=== PATIENT | female | born 1945 | race Caucasian/White ===

== ENCOUNTER 2016-05-03 10:30 | Inpatient (IN) | payer BC, OTHER ==
[2016-04-18 09:01] VITALS: BMI 28.0
--- NOTE | 2016-04-18 09:29 | PAT Medication Instructions ---
Service Date Apr 18, 2016. Current Home Medication List Acetaminophen (Tylenol 8 Hour Arthritis), 1,300 MG PO PN Aspirin (Aspirin Ec), 81 MG PO QPM Calcium (Caltrate), 600 MG PO BID Fish Oil ([place]-3), 1,000 MG PO BID Ibuprofen Tab (Advil), 400 MG PO PRN Lisinopril/Hctz (Prinzide 12.5-10MG *), 1 TAB PO QAM Multivitamin (Multivitamin), 1 TAB PO QAM Sennosides-Docusate Sodium (Stool Softener), 1 TAB PO QPM Simvastatin (Zocor), 20 MG PO QPM [Areds], 1 TAB PO 3XWEEK Medication Instructions For Your Scheduled Surgery - Hold the following medications as of 04/18/16: Fish Oil ([place]-3), 1,000 MG PO BID - Hold the following medications 10 days prior to surgery per surgeon's instructions: Ibuprofen Tab (Advil), 400 MG PO PRN - Hold the following medications the morning of surgery: Lisinopril/Hctz (Prinzide 12.5-10MG *), 1 TAB PO QAM Multivitamin (Multivitamin), 1 TAB PO QAM Calcium (Caltrate), 600 MG PO BID [Areds], 1 TAB PO 3XWEEK - Take the following medications the morning of surgery with a sip of water OTHERWISE NOTHING TO EAT OR DRINK AFTER MIDNIGHT: Acetaminophen (Tylenol 8 Hour Arthritis), 1,300 MG PO (may take up to 4 hours prior to surgery if needed) - Take the following medications as scheduled the night before surgery: Sennosides-Docusate Sodium (Stool Softener), 1 TAB PO QPM Simvastatin (Zocor), 20 MG PO QPM Aspirin (Aspirin Ec), 81 MG PO QPM Calcium (Caltrate), 600 MG PO BID Acetaminophen (Tylenol 8 Hour Arthritis), 1,300 MG PO If you have any questions please call us at [phone] or [phone] or [phone]
[2016-04-18 10:10] LABS: BASO % 0.5 %; BASO ABS # 0.03 K/uL (0-0.2); COMPLETE YES; EOS % 2.1 %; HEMATOCRIT 38.8 % (37-47); IG% 0.5 %; LYMPH % 25.3 %; LYMPH ABS # 1.42 K/uL (1.2-3.4); MEAN CELL VOLUME 91.1 fL (80-100); MEAN CORPUSCULAR HEMOGLOBIN 31.7 pg (25-34); MEAN CORPUSCULAR HGB CONC 34.8 g/dl (32-36); MEAN PLATELET VOLUME 9.4 fL (7.4-10.4); NEUT % 64.6 %; PLATELET COUNT 287 K/uL (130-400); RED BLOOD COUNT 4.26 M/uL (4.2-5.4); WHITE BLOOD COUNT 5.61 K/uL (4.8-10.8)
--- NOTE | 2016-04-18 10:13 | DIAGNOSTIC IMAGING REPORT ---
TWO VIEW CHEST CLINICAL HISTORY: Preoperative examination. FINDINGS: PA and lateral chest radiographs are compared to study dated 08/12/2009. The PA view is degraded by apical lordotic positioning. The cardiomediastinal silhouette is unremarkable. There is atherosclerotic calcification of the thoracic aorta. There is elevation of the right hemidiaphragm. The lungs and pleural spaces are clear. There is no pneumothorax. The skeletal structures are osteopenic. Degenerative change and scoliosis is noted in the thoracic spine. IMPRESSION: No active disease in the chest. Electronically signed by: Jayson Kaur M.D. 04/18/2016 10:12 AM Dictated Date/Time: 04/18/2016 10:11 AM
[2016-04-18 10:23] LABS: PARTIAL THROMBOPLASTIN RATIO 0.9; PROTHROMBIN TIME (PATIENT) 10.2 SECONDS (9.0-12.0)
[2016-04-18 10:34] LABS: BUN/CREATININE RATIO 30.9 (10-20); CALCIUM 9.6 mg/dl (8.5-10.1); CREATININE 0.81 mg/dl (0.60-1.20); POTASSIUM 4.6 mmol/L (3.5-5.1)
--- NOTE | 2016-04-30 11:44 | HISTORY & PHYSICAL EXAMINATION ---
DATE OF ADMISSION: 05/03/2016 CHIEF COMPLAINT: Left knee pain. HISTORY OF PRESENT ILLNESS: This is a 70-year-old female, who presents for surgical treatment of her left knee. She has a 2+ year history of persistent progressive increased left knee pain and discomfort. She has been through extensive conservative treatment including multiple oral medicines. She has been through therapy, which initially provided some relief but has not been successful lately. She had more and more trouble getting around. The pain is mostly on the medial side of her knee. It is increased with weightbearing. She would like to have her knee replaced. PAST MEDICAL HISTORY: 1. Hypertension. 2. Elevated cholesterol. 3. Mild obesity. 4. Melanoma status post resection. PAST SURGICAL HISTORY: 1. Benign lump removed from her breast. 2. Melanoma removal. ALLERGIES: None. CURRENT MEDICINES: 1. Lisinopril/hydrochlorothiazide. 2. Simvastatin. 3. Aspirin 81 mg. 4. Fish oil. 5. Multivitamin. 6. Calcium. SOCIAL HISTORY: Significant for a 70-year-old female. She is . Her has been a long-term patient of mine. Does not smoke. FAMILY HISTORY: Significant for heart disease and diabetes. REVIEW OF SYSTEMS: Negative for diabetes, neurologic problems, vascular problems or bleeding disorders. Denies any chest pain, no shortness of breath. No history of DVT or PE. PHYSICAL EXAMINATION: GENERAL: Reveals a pleasant, middle-aged female, looks to be in excellent health. HEENT: Benign. NECK: Supple. No lymphadenopathy. LUNGS: Clear to auscultation. HEART: Regular rate and rhythm. ABDOMEN: Soft, nontender, nondistended. EXTREMITIES: Grossly neurovascularly intact except as follows. Examination of the left knee reveals the patient walks with a slight bit of a limp. She has varus alignment to her knee. She has got bony hypertrophy medially. Range of motion is 5 to about 125. No instability. No pain with hip motion. X-RAYS: X-rays of the left knee were reviewed. It shows advanced left knee DJD. She has complete loss of medial joint space. She has subchondral sclerosis and osteophytes off the medial femoral condyle and medial tibial plateau. She has some mild patellofemoral disease as well. ASSESSMENT: A 70-year-old female with advanced left knee degenerative joint disease, unresponsive to conservative care. She would like to have her left knee replaced. PLAN: We will take her to the operating room and do a left total knee replacement. The risks and benefits of this procedure was explained to the patient including, but not limited to DVT, PE, , infection, neurological injury, vascular injury, bleeding problem, pain, limited range of motion, stiffness, failure to relieve her symptoms, incomplete relief of symptoms, need for further surgery in the future, fracture, leg length inequality, nerve palsy, need for blood transfusion, etc. The patient understands and desires to proceed. Informed consent was obtained. As far as discharge plan, she is planning to be discharged to home with the [facility]. Her can assist in her care as well. The patient had preoperative workup, which was all negative. We did talk about lisinopril the morning of surgery. I will see her back 2 weeks postop.
[2016-05-03] VITALS (7 sets, daily range): BP systolic 114–163; BP diastolic 68–98; PULSE 60–82; TEMP 36.3–36.6; O2SAT 99–100; Ht 160 cm; Wt 73.1 kg
[~2016-05-03] VITALS: Ht 160 cm; Wt 73.1 kg
[~2016-05-03 10:30] MED LIST: ACET650T97 PO; ACETAMINOPHEN 500 MG TAB PO SCH; AREDS PO; ASPI81TA28 PO; BUPIVACAINE 0.25% 30 ML VIAL ONE; BUPIVACAINE 0.5 % 5 MG/1 ML PF 10ML VIAL ONE; BUPIVACAINE LIPOSOME 266 MG, BUPIVACAINE/EPINEPHRINE INJ 50 ML, SODIUM CHLORIDE 0.9% PF... INFIL SCH; CALCTAB5 PO; CEFAZOLIN 2000 MG/60 ML D5W 60 ML IV SCH; FAMOTIDINE 20 MG TAB PO SCH; GABAPENTIN 300 MG CAP PO SCH; IBUP-103 PO; LACTATED RINGER'S 1000ML 500 ML IV ONE; LACTATED RINGER'S 1000ML IV SCH; METOCLOPRAMIDE HCL 10 MG TAB PO SCH; MULT-506 PO; OMEG10007 PO; SCOPOLAMINE 1.5 MG TDSY TD SCH; SENNTAB23 PO; SIMV20TA2 PO; TRANEXAMIC ACID INJ 1,000 MG in SODIUM CHLORIDE 0.9% 100ML 100 ML IV SCH; [UNRECOGNIZED DRUG - CODE] PO
[2016-05-03] MEDS: LACTATED RINGER'S 1000ML 1,000 ML IV SCH ×2 (11:22→12:20)
[2016-05-03] MEDS ORDERED: FENTANYL CITRATE INJ 50 MCG/1 ML 2 ML VIAL ONE (11:54)
[2016-05-03] MEDS ORDERED: MIDAZOLAM HCL 1 MG/ML 2ML VIAL ONE (11:55)
[2016-05-03] MEDS ORDERED: ONDANSETRON INJ 2 MG/ML 2 ML VIAL IV PRN ×2 (12:45→15:15)
[2016-05-03] MEDS ORDERED: ATROPINE SULFATE 0.1 MG/ML 5ML SYR IV PRN (12:45)
[2016-05-03] MEDS ORDERED: LABETALOL HCL IV 5 MG/ML 20ML IV PRN (12:45)
[2016-05-03] MEDS ORDERED: NALOXONE HCL 0.4 MG/1 ML VIAL/CARP IV PRN (12:45)
[2016-05-03] MEDS ORDERED: PROMETHAZINE HCL INJ 12.5 MG in SODIUM CHLORIDE 0.9% 50ML 50 ML IV PRN (12:45)
[2016-05-03] MEDS ORDERED: EpHEDrine SULFATE INJ 50 MG/ML AMP IV PRN (12:45)
[2016-05-03] MEDS ORDERED: FLUMAZENIL 0.1 MG/1 ML 10 ML VIAL IV PRN (12:45)
--- NOTE | 2016-05-03 13:05 | History & Physical Bridge Note ---
H&P Re-Evaluation Bridge Note: I have examined the patient, reviewed the History & Physical and in the interval since the performance of the History & Physical I have noted the following changes of clinical significance: No changes noted
[2016-05-03] MEDS ORDERED: BUPIVACAINE/EPINEPHRINE 0.25% 1:200,000 30 ML VIAL ONE (13:12)
[2016-05-03] MEDS ORDERED: SODIUM CHLORIDE 0.9% PF 50 ML VIAL ONE (13:12)
[2016-05-03] MEDS ORDERED: BACITRACIN 50000 UNIT VIAL ONE (13:13)
[2016-05-03] MEDS ORDERED: BUPIVACAINE LIPOSOME 1/3% 266 MG/20 ML VIAL INFIL ONE (13:13)
[2016-05-03] MEDS ORDERED: PROPOFOL IV EMULSION 10 MG/ML 20 ML VIAL IV ONE (13:56)
[2016-05-03] MEDS ORDERED: PHENYLEPHRINE HCL INJ 10 MG/ML VIAL ONE (14:46)
--- NOTE | 2016-05-03 15:11 | [facility] Post Operative Brief Note ---
Immediate Operative Summary Operative Date May 03, 2016. Pre-Operative Diagnosis Left Knee Advanced Degenerative Joint Disease Post-Operative Diagnosis Left Knee Advanced Degenerative Joint Disease Procedure(s) Performed Left Total Knee Arthroplasty Surgeon Dr. Jaime Plate Cutter Surgeon(s) SANDHYA Cadena Estimated Blood Loss 50 cc Findings Left Knee DJD Fluids (cc crystalloids) 1500 cc Specimens A. Left Knee Bone and Tissue Drains None Anesthesia Spinal Complication(s) None Disposition Recovery Room / PACU
[2016-05-03] MEDS ORDERED: METOCLOPRAMIDE HCL INJ 5 MG/ML 2 ML VIAL IV PRN (15:15)
[2016-05-03] MEDS ORDERED: ALUMINUM/MAGNESIUM/SIMETH (MAALOX MAX) 30 ML UDC PO PRN (15:15)
[2016-05-03] MEDS ORDERED: SILVER SULFADIAZINE 1% CR 50 GM JAR EXT PRN (15:15)
[2016-05-03] MEDS ORDERED: MAGNESIUM HYDROXIDE SUSP 30 ML UDC PO PRN (15:15)
[2016-05-03] MEDS ORDERED: ZOLPIDEM TARTRATE 5 MG TAB PO PRN (15:15)
[2016-05-03] MEDS ORDERED: AREDS PO SCH (15:15)
[2016-05-03] MEDS ORDERED: TAMSULOSIN HCL 0.4 MG CAP PO PRN (15:15)
[2016-05-03] MEDS ORDERED: BISACODYL 10 MG SUPP PR PRN (15:15)
[2016-05-03] MEDS ORDERED: MoRPHine SULFATE 2 MG/ML CARP IV PRN (15:15)
[2016-05-03] MEDS ORDERED: DiphenhydrAMINE HCL 50 MG/ML VIAL IV PRN (15:15)
--- NOTE | 2016-05-03 16:04 | OPERATIVE REPORT ---
DATE OF OPERATION: 05/03/2016 PREOPERATIVE DIAGNOSIS: Left knee degenerative joint disease. POSTOPERATIVE DIAGNOSIS: Same. PROCEDURE PERFORMED: Left cemented posterior stabilized total knee arthroplasty. SURGEON: Steve Jaime M.D. HARDENING MACHINE OPERATOR HELPER: Javier Hightower PA-C. COMPLICATIONS: None. ESTIMATED BLOOD LOSS: 50 mL. FLUID REPLACEMENT: 1500 mL crystalloid fluid replacement. TOURNIQUET TIME: 52 minutes at 300 mmHg. ANESTHESIA: Spinal with adductor canal block. DRAINS: None. SPECIMENS: Left knee sent for pathology. OPERATIVE INDICATIONS: The patient is a 70-year-old female who has had a several year history of increasing left knee pain and discomfort, unresponsive to conservative treatment. X-ray showed advanced left knee DJD. She elected to proceed with operative treatment. OPERATIVE FINDINGS: Operative findings revealed advanced left knee DJD. She had grade 4 [id number] disease extensively in the medial femoral condyle and medial tibial plateau. She had significant osteophytes off the medial side of the joint as well as the posteromedial femur. Moderate size joint effusion. Of note, she had a fairly large AP dimension of her femur relative to the medial lateral dimensions. OPERATIVE IMPLANTS: Operative implants consisted of: 1. Biomet Vanguard size 65 left posterior stabilized femoral component. 2. Biomet size 63 tibial tray. 3. A 10 mm posterior stabilized polyethylene insert. 4. A 31 x 8 all poly patella. OPERATIVE PROCEDURE: The patient taken to the operating room, identified and placed on the operating table in supine position. All contact areas were appropriately padded. IV antibiotics were provided by anesthesia team. A spinal anesthetic and adductor canal block had been provided in the holding area. Yip catheter was placed in sterile fashion. Left thigh tourniquet was then placed and left lower extremity was then prepped and draped in usual sterile fashion. Left leg was elevated and exsanguinated using Esmarch and tourniquet was placed at 300 mmHg. An anterior approach of the left knee was then performed through a longitudinal incision centered over the patella. Sharp dissection was carried out through the subcutaneous tissues down to the level of the extensor mechanism. A medial parapatellar arthrotomy incision was made. Some subperiosteal dissection was carried out medially. The fat pad was resected from beneath the patellar tendon. Lateral patellofemoral ligament was released. Patella was everted and knee was flexed. The osteophytes were taken off the distal femur. The ACL and PCL were then released from the distal femur and the tibia subluxated anteriorly. The external tibial alignment jig was then placed in the anterior face of the tibia and adjusted 14 mm medially. Proximal tibial cut was made to remove about 2 mm of bone from the most deficient aspect of the medial tibial plateau. Some osteophytes were taken off medial and posteromedially. Tibia was sized to a size 63. Attention was then drawn to the femur. The distal femur was entered with a sharp drill bit. Intramedullary canal was suctioned. A left 5 degree valgus cutting guide was placed. Distal femoral cutting block was pinned in place. Distal femoral cut was made to take an additional 3 mm of bone off the distal femur. The femur was then sized to a size 65. We did downsize this essentially an entire size due to the narrow medial lateral dimensions and knee was a little bit wide. The AP cutting block was pinned parallel to the epicondylar axis, which was 9 degrees of external rotation. She had a weird shape to her femur with a fairly anterior cortical defect. The anterior cut, anterior chamfer, posterior cut, posterior chamfer cuts were made. Box cutting guide was placed and adjusted slightly lateral and the box cut was made. The knee was flexed. The remnants of the medial and lateral menisci were excised. The osteophytes were taken off the posterior aspect of the femur. Trial femoral component was placed. Tibial tray was pinned in maximum external rotation and drill and stem punch were used to create defect in proximal tibia for the tibial tray. The knee was then trialed and a 10 mm insert fit most appropriately. Attention was then drawn to the patella. The patella was cleaned of all soft tissues. Patella thickness measured 20 mm in thickness cut down to 12. It was sized to a size 31 patella. Lug holes were drilled for the 31 patella. Lateral osteophyte was removed. Patella button was placed. Knee was taken through range of motion and patella tracked nicely with no thumbs test. Attention was then drawn toward placement of permanent components. All trial components were removed. Bone plug was placed in the distal femur to limit blood loss. A double batch of Palacos G cement was mixed. A left size 65 posterior stabilized femoral component, size 63 tibial tray, a 10 mm posterior stabilized polyethylene insert, and a 31 x 8 all poly patella then cemented in place. Knee was brought out into full extension until cement hardened. A final cement check was then performed. Pericapsular tissues were injected with a total of 100 mL of a combination of 20 mL of Exparel, 30 mL of normal saline, 50 mL of 0.25% Marcaine with epinephrine. The patient did receive 1 gram of tranexamic acid. The tourniquet was then let down for final tourniquet time of 52 minutes. Hemostasis was assured with use of electrocautery. The extensor mechanism was then closed with a combination of #1 PDS suture and #1 Vicryl suture in a [id number]-[id number] fashion. The extensor mechanism was checked and found to be intact. Subcutaneous tissues were then closed with 2-0 Dexon suture in a buried interrupted fashion. Skin was closed skin jessika. Leg was then cleaned and dried and a sterile dressing of Xeroform, 4 x 4, sterile cast padding and Rico bandage were applied. The patient was then transferred to the recovery room in stable condition. The patient tolerated the procedure with no complications. All needle and sponge counts were correct at the end of the operation. I attest to the content of the Intraoperative Record and any orders documented therein. Any exceptio ns are noted below.
--- NOTE | 2016-05-03 16:15 | DIAGNOSTIC IMAGING REPORT ---
LEFT KNEE 1 OR 2 VIEWS ROUTINE CLINICAL HISTORY: AP/LATERAL IN PACU LEFT KNEE knee replacement COMPARISON: None. DISCUSSION: Evidence for a total left knee replacement. Good contact between prosthetic and underlying bone. Soft tissue postoperative change. IMPRESSION: Anatomic alignment status post total left knee replacement Electronically signed by: Carlyle Mars M.D. 05/03/2016 4:14 PM Dictated Date/Time: 05/03/2016 4:13 PM
--- NOTE | 2016-05-03 16:44 | Anesthesiology Progress Note ---
Anesthesia Post Op Note Date & Time May 03, 2016 at 16:45 Vital Signs Pain Intensity: 0 Vital Signs Past 12 Hours Date Time Temp Pulse Resp B/P Pulse Ox O2 Delivery O2 Flow Rate FiO2 05/03/16 16:25 65 12 117/66 95 Nasal Cannula 2 05/03/16 16:15 86 19 130/77 96 Nasal Cannula 2 05/03/16 16:05 105 23 115/83 98 Nasal Cannula 2 05/03/16 15:55 63 12 115/64 95 Nasal Cannula 2 05/03/16 15:45 65 14 113/82 95 Nasal Cannula 2 05/03/16 15:35 59 10 101/64 97 Nasal Cannula 2 05/03/16 15:25 74 13 108/61 99 Mask 10 05/03/16 15:18 36.4 84 16 110/54 99 Mask 10 05/03/16 11:12 36.5 71 20 163/98 99 Room Air Notes Mental Status: alert / awake / arousable, participated in evaluation Pt Amnestic to Procedure: Yes Nausea / Vomiting: adequately controlled Pain: adequately controlled Airway Patency, RR, SpO2: stable & adequate BP & HR: stable & adequate Hydration State: stable & adequate Neuraxial Anesthesia: was administered, sensory block is resolving Anesthetic Complications: no major complications apparent
[2016-05-03] MEDS: CHECK SCOPOLAMINE PATCH PLACEMENT SCH (17:27)
[2016-05-03] MEDS: D5W AND 1/2NSS + 20MEQ KCL 1,000 ML IV SCH (18:18)
[2016-05-03] MEDS: KETOROLAC TROMETHAMINE 15 MG/ML VIAL IV. SCH (19:08)
[2016-05-03] MEDS: FERROUS GLUCONATE 324 MG TAB PO SCH (19:08)
[2016-05-03] MEDS ORDERED: TRANEXAMIC ACID INJ 1,000 MG in SODIUM CHLORIDE 0.9% 100ML 100 ML IV SCH (21:30)
[2016-05-03] MEDS: CEFAZOLIN IV 1,000 MG in DEXTROSE 5% 50ML 50 ML IV SCH (21:35)
[2016-05-03] MEDS: TAPENTADOL ER 50 MG TABCR PO SCH (21:35)
[2016-05-03] MEDS: OXYCODONE HCL IR 5 MG TAB (IMMEDIATE RELEASE) PO PRN (21:35)
[2016-05-03] MEDS: DOCUSATE SODIUM 100 MG CAP PO SCH (21:38)
[2016-05-03] MEDS: ACETAMINOPHEN 500 MG TAB PO SCH (21:39)
[2016-05-03] MEDS: CALCIUM CARBONATE 1250MG TAB PO SCH (21:39)
[2016-05-03] MEDS: SIMVASTATIN 20 MG TAB PO SCH (21:39)
[2016-05-03] MEDS: ASPIRIN 325 MG ECTAB PO SCH (21:39)
[2016-05-03] MEDS: DOCUSATE SODIUM/SENNA 50/8.6MG TAB PO SCH (22:09)
[2016-05-04] VITALS (8 sets, daily range): BP systolic 127–178; BP diastolic 78–92; PULSE 68–97; TEMP 36.4–37.3; O2SAT 70–97
[2016-05-04] MEDS: CHECK SCOPOLAMINE PATCH PLACEMENT SCH ×3 (00:09→16:28)
[2016-05-04] MEDS: KETOROLAC TROMETHAMINE 15 MG/ML VIAL IV. SCH ×4 (00:10→17:47)
[2016-05-04] MEDS: D5W AND 1/2NSS + 20MEQ KCL 1,000 ML IV SCH ×2 (04:00→12:51)
[2016-05-04] MEDS: CEFAZOLIN IV 1,000 MG in DEXTROSE 5% 50ML 50 ML IV SCH (05:32)
[2016-05-04] MEDS: ACETAMINOPHEN 500 MG TAB PO SCH ×3 (05:32→22:06)
[2016-05-04 06:52] LABS: HEMATOCRIT 30.9 % (37-47); MEAN CELL VOLUME 88.8 fL (80-100); MEAN CORPUSCULAR HEMOGLOBIN 30.7 pg (25-34); MEAN CORPUSCULAR HGB CONC 34.6 g/dl (32-36); MEAN PLATELET VOLUME 8.9 fL (7.4-10.4); PLATELET COUNT 242 K/uL (130-400); RED BLOOD COUNT 3.48 M/uL (4.2-5.4); WHITE BLOOD COUNT 9.82 K/uL (4.8-10.8)
[2016-05-04 07:26] LABS: BUN/CREATININE RATIO 17.7 (10-20); CALCIUM 8.7 mg/dl (8.5-10.1); CREATININE 0.91 mg/dl (0.60-1.20); POTASSIUM 4.1 mmol/L (3.5-5.1)
--- NOTE | 2016-05-04 07:47 | Anesthesiology Progress Note ---
Anesthesia Post Op Note Date & Time May 04, 2016 at 07:47 Vital Signs Vital Signs Past 12 Hours Date Time Temp Pulse Resp B/P Pulse Ox O2 Delivery O2 Flow Rate FiO2 05/04/16 03:26 37.3 73 16 127/79 95 Room Air 05/04/16 00:10 Room Air 05/03/16 23:47 36.6 70 16 135/83 99 Room Air Notes Mental Status: alert / awake / arousable, participated in evaluation Pt Amnestic to Procedure: Yes Nausea / Vomiting: adequately controlled Pain: adequately controlled Airway Patency, RR, SpO2: stable & adequate BP & HR: stable & adequate Hydration State: stable & adequate Neuraxial Anesthesia: sensory block resolved Anesthetic Complications: no major complications apparent
[2016-05-04] MEDS: TAPENTADOL ER 50 MG TABCR PO SCH ×2 (08:38→22:10)
[2016-05-04] MEDS: MULTIVITAMIN TAB PO SCH (08:38)
[2016-05-04] MEDS: ASPIRIN 325 MG ECTAB PO SCH ×2 (08:38→22:06)
[2016-05-04] MEDS: FERROUS GLUCONATE 324 MG TAB PO SCH ×3 (08:38→17:45)
[2016-05-04] MEDS: DOCUSATE SODIUM 100 MG CAP PO SCH ×2 (08:38→22:06)
[2016-05-04] MEDS: CALCIUM CARBONATE 1250MG TAB PO SCH ×2 (08:39→22:05)
[2016-05-04] MEDS: LISINOPRIL/HCTZ 10/12.5MG TAB PO SCH (08:39)
[2016-05-04] MEDS: PANTOprazole SOD 40 MG TAB PO SCH (08:39)
[2016-05-04] MEDS ORDERED: MULTIVITAMIN TAB PO SCH (09:00)
[2016-05-04] MEDS: OXYCODONE HCL IR 5 MG TAB (IMMEDIATE RELEASE) PO PRN ×2 (11:16→16:28)
[2016-05-04] MEDS ORDERED: FRRG PO (13:36)
[2016-05-04] MEDS ORDERED: PROM25TA9 PO (13:36)
[2016-05-04] MEDS ORDERED: ASPEC325 PO (13:36)
[2016-05-04] MEDS ORDERED: ACET-1138 PO (13:36)
[2016-05-04] MEDS ORDERED: RXC5 PO (13:36)
--- NOTE | 2016-05-04 13:38 | Discharge Instructions ---
Discharge Instructions Admission Reason for Admission: Left Knee Osteoarthritis Discharge Discharge Diagnosis / Problem: Left Knee Replacement Discharge Goals Goal(s): Decrease discomfort, Improve function, Increase independence, Improve disease control, Therapeutic intervention Activity Recommendations Activity Limitations: per Instructions/Follow-up section Weightbearing Status: Left weightbearing . Instructions / Follow-Up Instructions / Follow-Up ACTIVITY RECOMMENDATIONS: Physical Therapy: * You will go to physical therapy three times each week for four to six weeks after your surgery in order to regain your knee range of motion and to retrain your knee to work properly. * It is just as important to make sure you are getting your knee perfectly straight as it is to regain your knee bend. * Taking a pain pill an hour before therapy can help you have a more productive and comfortable therapy session. Home Exercise: * You were shown a series of exercises (heel props, heel slides, etc.) in the hospital. Do these exercises three to four times each day including the exercises you were shown in physical therapy. Walking: * Get up and walk several times each day. For the first four weeks, try not to stand or walk for more than one hour at a time. If you do stand or walk for more than one hour, you will not hurt anything, but your knee and leg will likely swell. * As you feel comfortable, you may change from the walker or crutches to a cane and then to independent walking. MEDICATIONS: New Medicine: * You will likely be taking one or more of these medications: 1. Oxycodone - A quick and shorter-acting pain medication. Take one to two tablets every four to six hours to lessen your pain. 2. Iron Sulfate - Take three times each day for the month after surgery to help you replace the blood lost during surgery. 3. Aspirin - Thins your blood to lessen the chance of forming a blood clot. * The most common side effects of pain medicine and iron are nausea and constipation. If nausea or constipation is too much of a problem or if you have any questions about your new medicines or doses, call [facility] at . We will try to help you manage these issues. VERY IMPORTANT TO READ AND REVIEW" Pain: * The immediate post-operative period after knee replacement surgery is often quite painful. * You are given a prescription for pain medicine. You should take it, as directed, when you need it, especially before physical therapy and before going to bed. Pain that interferes with sleep is very common and can last several months. * You will likely need pain medicine for the first four to six weeks. It will not stop all of the pain. The pain will lessen and as you feel better, you may change to milder pain medicine such as Tylenol. * The most common side effects of pain medicine are nausea and constipation, so don't take more than you need. SPECIAL CARE INSTRUCTIONS: TEDs/Elastic Stockings: * The white elastic stockings help limit swelling and prevent blood clots from forming in your legs. The more you wear them, the more they work. * Wear them for six weeks after knee replacement surgery and four weeks after partial knee replacement. Prevention of Infection: * Take antibiotics one hour before any dental cleaning, dental work, urological procedure, gastrointestinal procedure or any invasive surgery in order to prevent your new joint from getting infected. * You may get the antibiotics from the doctor performing the procedure or you may call our office at before and we will call in a prescription to the pharmacy of your choice. Things to Watch For: * Drainage from the incision site that occurs more than one week after your surgery. * Severely increased knee/leg pain or swelling. * Increased redness at the incision site. * Fever above 102 degrees Fahrenheit. * Unusual chest pain or shortness of breath. * Unusual pain or burning with urination. Call [facility] at with any of the above problems or if you have any questions about your medicines or recovery. FOLLOW UP VISIT: Make an appointment to see your doctor for approximately two weeks after surgery for a progress check and staple removal by calling the office at . Current Hospital Diet Patient's current hospital diet: Regular Diet Discharge Diet Recommended Diet: Regular Diet Procedures Procedures Performed: Left Total Knee Arthroplasty Pending Studies Studies pending at discharge: no Medical Emergencies . Who to Call and When: Medical Emergencies: If at any time you feel your situation is an emergency, please call [phone] immediately. . Non-Emergent Contact Non-Emergency issues call your: Surgeon . "Provider Documentation" section prepared by Steve Jaime. VTE Core Measure Inpt VTE Proph given/why not?: Other Anticoagulation, T.E.D. Stockings, SCD's
--- NOTE | 2016-05-04 13:57 | PROGRESS NOTE ---
DATE: 05/04/2016 DATE: 05/04/2016. SUBJECTIVE: A 70-year-old female postop day #1 from a left knee replacement. She is doing pretty well. Quite a bit of quad soreness and that is mostly it. No chest pain or shortness of breath. She is getting a little bit dizzy when she first gets up. No chest pain or shortness of breath. OBJECTIVE: VITAL SIGNS: Temperature is 36.6. PHYSICAL EXAMINATION: VITAL SIGNS: Stable. Some mild hypertension. LUNGS: Clear to auscultation. HEART: Regular rate and rhythm. ABDOMEN: Soft, nontender, nondistended. EXTREMITY EXAMINATION: Grossly neurovascularly intact except as follows: Examination of the left lower extremity reveals the dressing to be clean, dry and intact. Leg is well aligned. She can dorsiflex and plantarflex her foot appropriately. She is neurologically intact. LABORATORY DATA: Hemoglobin 10.7. Hematocrit 30.9. Electrolytes are stable. ASSESSMENT: A 70-year-old white female postop day 1 from left total knee replacement, doing pretty well. Some pain but within what is expected. She is getting a little bit dizzy when she gets up likely just the side effects of anesthesia and surgery. She is anemic but blood pressure is good. PLAN: 1. DVT prophylaxis including thigh-high TEDs, SCDs, and aspirin twice a day. 2. PT/OT. Weightbearing as tolerated. Left total knee protocol. 3. Pain control. Doing pretty well with current pain regimen. 4. Anemia. Fairly mild anemia. She is having some dizziness, but I do not think it is related to her anemia. Will continue to follow this and use iron supplementation. 5. Disposition: Plan to discharge to home with home health once adequately recovered.
[2016-05-04] MEDS: DOCUSATE SODIUM/SENNA 50/8.6MG TAB PO SCH (22:06)
[2016-05-04] MEDS: SIMVASTATIN 20 MG TAB PO SCH (22:06)
[2016-05-05] MEDS: KETOROLAC TROMETHAMINE 15 MG/ML VIAL IV. SCH ×3 (00:36→11:11)
[2016-05-05] MEDS: ACETAMINOPHEN 500 MG TAB PO SCH ×2 (05:50→13:44)
--- NOTE | 2016-05-05 07:37 | PROGRESS NOTE ---
DATE: 05/05/2016 SUBJECTIVE: 70-year-old female postop day 2 from left knee replacement. She is doing pretty well. Pain seems to be a little bit better today. No chest pain or shortness of breath. Not feeling dizzy or lightheaded. OBJECTIVE: VITAL SIGNS: Temperature 36.7. Vital signs stable. Some mild intermittent hypertension. PHYSICAL EXAMINATION: GENERAL: Reveals a pleasant, middle-aged female. She is sitting up in bed and looks comfortable. She is eating breakfast. LUNGS: Clear to auscultation. HEART: Regular rate and rhythm. ABDOMEN: Soft, nontender, nondistended. EXTREMITIES: Grossly neurovascularly intact except as follows: Examination of the left lower extremity reveals the dressing to be clean, dry and intact. Leg is well aligned. She can dorsiflex and plantarflex her foot appropriately. Calf is soft and supple. ASSESSMENT: 70-year-old female postop day 2 from left knee replacement, doing pretty well. Pain is reasonably well controlled. PLAN: 1. DVT prophylaxis including thigh-high TEDs, SCDs, and aspirin twice a day. 2. PT/OT. Weightbearing as tolerated. Left total knee protocol. 3. Pain control, doing pretty well with current pain regimen. 4. Disposition: Plan to discharge to home with home health.
[2016-05-05] MEDS: CHECK SCOPOLAMINE PATCH PLACEMENT SCH ×2 (07:47)
[2016-05-05] MEDS: FERROUS GLUCONATE 324 MG TAB PO SCH ×2 (07:48→12:30)
[2016-05-05] MEDS: DOCUSATE SODIUM 100 MG CAP PO SCH (08:46)
[2016-05-05] MEDS: LISINOPRIL/HCTZ 10/12.5MG TAB PO SCH (08:46)
[2016-05-05] MEDS: CALCIUM CARBONATE 1250MG TAB PO SCH (08:47)
[2016-05-05] MEDS: MULTIVITAMIN TAB PO SCH (08:47)
[2016-05-05] MEDS: PANTOprazole SOD 40 MG TAB PO SCH (08:47)
[2016-05-05] MEDS: ASPIRIN 325 MG ECTAB PO SCH (08:47)
[2016-05-05] MEDS: TAPENTADOL ER 50 MG TABCR PO SCH (08:51)
[2016-05-05 09:53] VITALS: BP 159/78; PULSE 89; TEMP 36.7; O2SAT 93
[2016-05-05 10:46] VITALS: BP 152/87; PULSE 82; TEMP 36.7; O2SAT 93
[2016-05-05] MEDS: OXYCODONE HCL IR 5 MG TAB (IMMEDIATE RELEASE) PO PRN ×2 (11:10→15:20)
--- NOTE | 2016-05-07 11:14 | EDITING REQUIRED CODING QUERY ---
CODING QUERY ANEMIA To promote full compliance with coding requirements relating to patient care, physician participation is requested in all cases of security director uncertainty. Please assist us with the question(s) below: Coding Question(s): The record reflects the following clinical documentation: Anemia postoperatively with HCT of 30.9 and HCT of 10.7. There are several coding choices for this diagnosis and more specificity is needed for code selection. [place] indicate the type of anemia this patient had: (x) Acute blood loss anemia ( ) Acute postoperative anemia due to dilutional fluids ( ) Chronic blood loss anemia ( ) Iron deficient anemia due to blood loss ( ) Iron deficiency anemia ( ) Anemia, unspecified or other ( ) Other: (please specify) ( ) Unable to determine Thank you for your time, Kristy Pacheco BA, , OCULAR CARE AIDE, INDUSTRIAL WASTE INSPECTOR
--- NOTE | 2016-05-11 11:11 | DISCHARGE SUMMARY ---
ADMITTING PHYSICIAN AND SURGEON: Dr. Jaime. ADMITTING DIAGNOSIS: Left knee degenerative joint disease. SURGERY PERFORMED: Left total knee arthroplasty. SECONDARY DIAGNOSES: Includes hypertension, elevated cholesterol, mild obesity, melanoma. HISTORY AND PHYSICAL EXAMINATION: Well documented in the patient's chart. HOSPITAL COURSE: The patient was admitted on 05/03/2016 underwent total knee arthroplasty. She tolerated the procedure well. There were no complications. Transferred to PACU postoperatively and later to the orthopedic floor for further care. She was given Ancef for antibiotic prophylaxis, LEANDRO stockings, SCDs and aspirin for DVT prophylaxis. Her hemoglobin, hematocrit and vital signs were monitored during her hospital stay and she remained stable. She developed some postoperative anemia with a hemoglobin of 10.7, did not require any blood transfusions. She did receive an iron supplement. There were no complications. By postoperative day 2, she was tolerating a general diet, pain was controlled with oral pain medicine. She was participating in physical therapy and had no signs or symptoms of deep vein thrombosis. On postop day 2, she was discharged home in good condition, set up with home health services. She was given printed discharge instructions including prescriptions for extra strength Tylenol, aspirin 325 mg b.i.d., iron supplement, oxycodone, Phenergan and continue her home medicines with the exception of her home doses of Tylenol and aspirin which were changed. Continue physical therapy, weightbearing as tolerated, LEANDRO stockings. Follow up in 10-12 days or sooner if there are problems or concerns.
== END 2016-05-05 15:30 | disposition home health service (06) | DRG 470 ==
LOC: ENRESERVTM → ENRESERVDT → C.ACU 10:30 → C.3E 11:20
PROVIDERS: ADMIT Orthopaedic Surgery Sports Medicine; ATTEND Orthopaedic Surgery Sports Medicine
PROC: 0SRD0J9 Replacement of Left Knee Joint with Synthetic Substitute, Cemented, Open Approach (ICD-10-PCS; principal; 2016-05-03 12:15)
DX: M17.12 Unilateral primary osteoarthritis, left knee (principal); D62 Acute posthemorrhagic anemia; M21.162 Varus deformity, not elsewhere classified, left knee; M25.462 Effusion, left knee; R42 Dizziness and giddiness; I10 Essential (primary) hypertension; E78.00 Pure hypercholesterolemia, unspecified; E66.9 Obesity, unspecified; Z68.28 Body mass index [BMI] 28.0-28.9, adult; Z79.82 Long term (current) use of aspirin; Z79.899 Other long term (current) drug therapy

== ENCOUNTER → 2016-08-15 | Outpatient (CLI) | payer BC, OTHER ==
[~2016-08-15] MED LIST changes: +ACET-1138 PO; -ACET650T97 PO; -ACETAMINOPHEN 500 MG TAB PO SCH; +ASPEC325 PO; -ASPI81TA28 PO; -BUPIVACAINE 0.25% 30 ML VIAL ONE; -BUPIVACAINE 0.5 % 5 MG/1 ML PF 10ML VIAL ONE; -BUPIVACAINE LIPOSOME 266 MG, BUPIVACAINE/EPINEPHRINE INJ 50 ML, SODIUM CHLORIDE 0.9% PF... INFIL SCH; -CEFAZOLIN 2000 MG/60 ML D5W 60 ML IV SCH; -FAMOTIDINE 20 MG TAB PO SCH; +FRRG PO; -GABAPENTIN 300 MG CAP PO SCH; -LACTATED RINGER'S 1000ML 500 ML IV ONE; -LACTATED RINGER'S 1000ML IV SCH; -METOCLOPRAMIDE HCL 10 MG TAB PO SCH; +RXC5 PO; -SCOPOLAMINE 1.5 MG TDSY TD SCH; -TRANEXAMIC ACID INJ 1,000 MG in SODIUM CHLORIDE 0.9% 100ML 100 ML IV SCH
[2016-08-15 12:23] LABS: BLOOD UREA NITROGEN 18 mg/dl (7-18); BUN/CREATININE RATIO 23.5 (10-20); CALCIUM 9.6 mg/dl (8.5-10.1); CARBON DIOXIDE 30 mmol/L (21-32); CHLORIDE 106 mmol/L (98-107); CREATININE 0.78 mg/dl (0.60-1.20); GLUCOSE 86 mg/dl (70-99); POTASSIUM 4.1 mmol/L (3.5-5.1); SODIUM 141 mmol/L (136-145)
[2016-08-15 12:30] LABS: CHOLESTEROL 167 mg/dl (0-200); CHOLESTEROL/HDL RATIO 2.7; HDL CHOLESTEROL 62 mg/dl; LDL CHOLESTEROL CALCULATED 68 mg/dl; TRIGLYCERIDES 186 mg/dl (0-150); VERY LOW DENSITY LIPOPROT CALC 37 mg/dl
== END | disposition home or self-care (01) ==
LOC: C.LABPVFM 08:28
PROVIDERS: ATTEND Family Medicine
DX: E78.5 Hyperlipidemia, unspecified (principal); I10 Essential (primary) hypertension

== ENCOUNTER → 2016-10-25 | Outpatient (CLI) | payer BC ==
--- NOTE | 2016-10-25 14:36 | MAMMOGRAPHY REPORT ---
BILATERAL DIGITAL SCREENING MAMMOGRAM WITH CAD: 10/25/2016 CLINICAL HISTORY: Routine screening. TECHNIQUE: Bilateral CC and MLO views were obtained. Current study was also evaluated with a Compute r Aided Detection (CAD) system. COMPARISON: Comparison is made to exams dated: 10/21/2015 mammogram, 10/14/2014 mammogram, 10/09/2013 ma mmogram, 10/03/2012 mammogram, 09/29/2011 mammogram, and 09/27/2010 mammogram - [facility] nter. BREAST COMPOSITION: There are scattered areas of fibroglandular density in both breasts. FINDINGS: Several circular mole markers overlie each breast. There are scattered benign-appearing ri m and round microcalcifications. No suspicious mass, architectural distortion or cluster of suspicio us microcalcifications is seen. IMPRESSION: ACR BI-RADS CATEGORY 1: NEGATIVE There is no mammographic evidence of malignancy. A 1 year screening mammogram is recommended. The pa tient will receive written notification of the results. Approximately 10% of breast cancers are not detected with mammography. A negative mammographic report should not delay biopsy if a clinically suggestive mass is present. Celina Regalado M.D. ay/:10/25/2016 11:29:28 Substance Abuse Nurse: Nathalia HAWKINS(R)(M), [facility] letter sent: Normal 1/2 BI-RADS Code: ACR BI-RADS Category 1: Negative
== END | disposition home or self-care (01) ==
LOC: C.MAMM 10:52
PROVIDERS: ATTEND Family Medicine
DX: Z12.31 Encounter for screening mammogram for malignant neoplasm of breast (principal)

== ENCOUNTER → 2017-01-20 | Outpatient (CLI) | payer BC ==
[2017-01-20 17:37] LABS: BLOOD UREA NITROGEN 20 mg/dl (7-18); BUN/CREATININE RATIO 24.1 (10-20); CALCIUM 9.7 mg/dl (8.5-10.1); CARBON DIOXIDE 28 mmol/L (21-32); CHLORIDE 105 mmol/L (98-107); CREATININE 0.84 mg/dl (0.60-1.20); GLUCOSE 92 mg/dl (70-99); SODIUM 139 mmol/L (136-145)
== END | disposition home or self-care (01) ==
LOC: C.LABPVFM 11:37
PROVIDERS: ATTEND Family Medicine
DX: I10 Essential (primary) hypertension (principal)

== ENCOUNTER → 2017-06-01 | Outpatient (CLI) | payer BC | END | disposition home or self-care (01) | LOC: C.PATHSPEC 18:39 | PROVIDERS: ATTEND Plastic Surgery | DX: D23.71 Other benign neoplasm of skin of right lower limb, including hip (principal); L90.5 Scar conditions and fibrosis of skin ==

== ENCOUNTER → 2017-10-23 | Outpatient (CLI) | payer BC ==
[2017-10-23 17:14] LABS: HEMATOCRIT 39.9 % (37-47); HEMOGLOBIN 13.1 g/dL (12.0-16.0); MEAN CELL VOLUME 93.4 fL (80-100); MEAN CORPUSCULAR HEMOGLOBIN 30.7 pg (25-34); MEAN CORPUSCULAR HGB CONC 32.8 g/dl (32-36); MEAN PLATELET VOLUME 9.6 fL (7.4-10.4); PLATELET COUNT 333 K/uL (130-400); RED CELL DISTRIBUTION WIDTH CV 14.1 % (11.5-14.5); RED CELL DISTRIBUTION WIDTH SD 47.9 fL (36.4-46.3); WHITE BLOOD COUNT 7.85 K/uL (4.8-10.8)
[2017-10-23 17:28] LABS: ALBUMIN 3.9 gm/dl (3.4-5.0); ALKALINE PHOSPHATASE 72 U/L (45-117); ALT/SGPT 30 U/L (12-78); AST/SGOT 19 U/L (15-37); BLOOD UREA NITROGEN 22 mg/dl (7-18); CALCIUM 9.7 mg/dl (8.5-10.1); CARBON DIOXIDE 28 mmol/L (21-32); CHOLESTEROL 175 mg/dl (0-200); GLUCOSE 95 mg/dl (70-99); LDL CHOLESTEROL CALCULATED 63 mg/dl; POTASSIUM 3.9 mmol/L (3.5-5.1); SODIUM 140 mmol/L (136-145); TOTAL PROTEIN 7.5 gm/dl (6.4-8.2)
== END | disposition home or self-care (01) ==
LOC: C.LABPVFM 14:10
PROVIDERS: ATTEND Family Medicine
DX: J06.9 Acute upper respiratory infection, unspecified (principal)

== ENCOUNTER 2019-12-05 10:36 | Observation (INO) ==
--- NOTE | 2019-11-05 16:38 | PAT Medication Instructions ---
Medication Instructions Date of Service November 05, 2019 Home Medications Medication Instructions Recorded docusate sodium [Colace] 100 mg PO BID #60 cap 06/10/18 lisinopril 10 1 tab PO QAM #90 tab 05/23/19 mg-hydrochlorothiazide 12.5 mg tablet simvastatin 20 mg tablet 20 mg PO HS #90 tab 05/23/19 alendronate 70 mg tablet See Rx Instructions .ROUTE 07/01/19 .COMPLEX #12 tablet diclofenac sodium 75 mg 75 mg PO BID PRN #60 tab 10/18/19 tablet,delayed release multivitamin 1 tab PO QAM docusate sodium [Colace] 100 mg PO BID calcium carbonate 600 mg calcium (1,500 mg) tablet 600 mg PO BID aspirin 81 mg tablet,delayed release 81 mg PO HS lisinopril 10 mg-hydrochlorothiazide 12.5 mg tablet 1 tab PO QAM simvastatin 20 mg tablet 20 mg PO HS alendronate 70 mg tablet See Rx Instructions diclofenac sodium 75 mg tablet,delayed release 75 mg PO BID PRN Continue as directed alendronate 70 mg tablet See Rx Instructions (just do not take AM of surgery) ASK your surgeon for instructions diclofenac sodium 75 mg tablet,delayed release 75 mg PO BID PRN DO NOT take the morning of surgery multivitamin 1 tab PO QAM docusate sodium [Colace] 100 mg PO BID calcium carbonate 600 mg calcium (1,500 mg) tablet 600 mg PO BID lisinopril 10 mg-hydrochlorothiazide 12.5 mg tablet 1 tab PO QAM Take evening before surgery simvastatin 20 mg tablet 20 mg PO HS aspirin 81 mg tablet,delayed release 81 mg PO HS docusate sodium [Colace] 100 mg PO BID calcium carbonate 600 mg calcium (1,500 mg) tablet 600 mg PO BID OTHERWISE NOTHING TO EAT OR DRINK AFTER MIDNIGHT Other Notes If you have any questions please call us at [phone] or [phone] or [phone] or [phone]
--- NOTE | 2019-11-06 09:29 | Anesthesiology Consultation ---
Date of Service November 06, 2019 Assessment & Plan (1) Encounter for pre-operative examination: COVID Status: As of 11/05 assessment, patient denies travel to endemic area, known exposure/sick contacts, or symptoms of COVID19. Patient instructed that they and their household members must follow strict social distancing guidelines, wear a mask in public and avoid travel for 14 days prior to surgery. Preoperative COVID19 testing to be completed prior to surgery per surgeon's arra ngarpita. Patient made aware to self-isolate as much as possible between COVID testing and surgery. S/P L TKA 2017 @ [facility] -- SAB + PNB without issues. Chart Review Chart Review: Acceptable Risk for Surgery and Patient seen in Pre Admission Testing Teaching & Discussion Instructed NPO after midnight before surgery, except medications with 15 cc of water. Medication instructions provided according to the PAT guidelines. History Surgery Operation Date: 12/05/19 07:30 Proposed Procedures p Right Total Knee Arthroplasty - Steve Jaime MD Height/Weight Height: 5 ft 2 in Weight: 74.1 kg Allergies Allergy/AdvReac Type Severity Reaction Status Date / Time No Known Drug Allergies Allergy Unknown NONE Verified 10/30/19 10:20 venom-wasp Allergy Verified 10/30/19 10:20 Medications Home Medications Medication Instructions Recorded Confirmed Last Taken multivitamin 1 tab PO QAM 03/12/18 10/30/19 06/10/18 docusate sodium [Colace] 100 mg PO BID #60 cap 06/10/18 10/30/19 Unknown calcium carbonate 600 mg calcium 600 mg PO BID 10/31/18 10/30/19 Unknown (1,500 mg) tablet aspirin 81 mg tablet,delayed 81 mg PO HS 12/17/18 10/30/19 Unknown release lisinopril 10 1 tab PO QAM #90 tab 05/23/19 10/30/19 Unknown mg-hydrochlorothiazide 12.5 mg tablet simvastatin 20 mg tablet 20 mg PO HS #90 tab 05/23/19 10/30/19 Unknown alendronate 70 mg tablet See Rx Instructions .ROUTE 07/01/19 10/30/19 Unknown .COMPLEX #12 tablet diclofenac sodium 75 mg 75 mg PO BID PRN #60 tab 10/18/19 10/30/19 Unknown tablet,delayed release Past Medical History Medical History (Updated 11/06/19 @ 16:19 by Arturo Porras) Cardiac murmur no requirements engineer; last echo 2008 [place] showed mild AI; no murmur heard on exam at PAT History of basal cell carcinoma 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 Unknown etiology. History of melanoma Hyperlipidemia Hypertension Macular degeneration "MILD" Osteoarthritis Postmenopausal bone loss Sciatica Exercise / Class Metabolic Activity II 4-5 Yardwork/Stairs/Walk up hill Past Family History Family History Grandfather (Paternal) Family history of diabetes mellitus Family/Other Family history of diabetes mellitus Father Myocardial infarction Other No family history of adverse response to anesthesia Denies family history of Ovarian cancer Prostate cancer Breast cancer Colorectal cancer Past Surgical History Surgical History History of basal cell carcinoma (BCC) excision History of cataract surgery History of colonoscopy History of left knee replacement History of melanoma excision History of tonsillectomy History of tooth extraction Past Anesthesia History No Hx of Anesthesia Complications and No Family Hx of Anesthesia Complications History of PONV No Hx of PONV and Hx of Motion Sickness Social History Smoking Status: Never smoker Do You Dip or Chew Tobacco: No Hx Alcohol Use: Yes Alcohol type: wine alcohol intake frequency: a few times a month Hx Substance Use: No substance use type: does not use Review of Systems Pt denies any recent chest pain, shortness of breath, palpitations, cough, fever, URI, or uncontrolled acid reflux. Physical Exam Vital Signs BP: 150/92 (pt following with PCP for HTN, on Lisonopril/HCTZ, reports usually still in 140s systolic and will discuss with PCP at next appt) P: 75bpm SPO2: 96% RA T: 98.2 F R: 16 ENMT Mouth: + dental restorations (few crowns, upper incisors and molars); no chipped teeth and no loose teeth Thyromental Distance: > or= 3.5 Finger Breadths Mallampati Class: II Neck normal visual inspection; neck extension not limited Respiratory normal respiratory effort Auscultation: lungs clear to auscultation bilaterally Cardiovascular Rate/Rhythm: regular rate and regular rhythm Heart Sounds: no murmur Extremities: no edema Testing Laboratory Results 11/06/19 09:46 11/06/19 09:46 PT 10.3 Seconds (9.0-12.0) 11/06/19 09:46 INR 1.0 (0.9-1.1) 11/06/19 09:46 APTT 24.8 Seconds (21.0-31.0) 11/06/19 09:46 Blood Type A Positive 11/06/19 09:46 Antibody Screen NEGATIVE 11/06/19 09:46 Electrocardiogram Date: 11/06/19 Findings: + NSR @ (67bpm) Nonspecific T wave abnormality in anteroseptal leads. Compared with EKG of 04/18/2016, nonspecific T wave abnormality now present. Otherwise no significant change. Chest X-Ray Date: 11/06/19 Findings: + NAD
--- NOTE | 2019-11-06 10:04 | XRay Report ---
XR chest Pre-admission PA/Lat CLINICAL HISTORY: Preoperative chest COMPARISON STUDY: 04/18/2016 FINDINGS: The cardiac and mediastinal contours are normal. There is no evidence of focal pulmonary co nsolidation. There is no evidence of failure. No pleural effusions are visualized.[There is right inf rahilar subsegmental atelectasis/scarring IMPRESSION: No active disease in the chest. ACT 112: Negative or not required by law. Electronically signed by: Jay Roberto M.D. 11/06/2019 10:03 AM
[2019-11-06 10:17] LABS: Basophils # (auto) 0.02 K/uL (0-0.2); Basophils % (auto) 0.3 %; Eosinophils # (auto) 0.11 K/uL (0-0.5); Eosinophils % (auto) 1.8 %; Hematocrit (blood only) 36.7 % (37-47); Hemoglobin 12.5 g/dL (12.0-16.0); Immature Granulocytes # (auto) 0.03 K/uL (0.00-0.02); Immature Granulocytes % (auto) 0.5 %; Lymphocytes # (auto) 1.43 K/uL (1.2-3.4); Lymphocytes % (auto) 23.7 %; Mean Corpuscular Hemoglobin 31.3 pg (25-34); Mean Corpuscular Hgb Conc 34.1 g/dL (32-36); Mean Platelet Volume 8.9 fL (7.4-10.4); Monocytes # (auto) 0.35 K/uL (0.11-0.59); Monocytes % (auto) 5.8 %; Neutrophils # (auto) 4.09 K/uL (1.4-6.5); Neutrophils % (auto) 67.9 %; Platelet Count 293 K/uL (130-400); RDW Coefficient of Variation 13.5 % (11.5-14.5); RDW Standard Deviation 44.8 fL (36.4-46.3); Red Blood Count 3.99 M/uL (4.2-5.4); White Blood Count 6.03 K/uL (4.8-10.8)
[2019-11-06 10:28] LABS: Partial Thromboplastin Ratio 0.9; Partial Thromboplastin Time 24.8 Seconds (21.0-31.0); Prothrombin Time 10.3 Seconds (9.0-12.0)
[2019-11-06 10:52] LABS: BUN Creatinine Ratio 29.3 (10-20); Blood Urea Nitrogen 27 mg/dl (7-18); C Reactive Protein < 0.29 mg/dl (0-0.29); Calcium 9.5 mg/dl (8.5-10.1); Carbon Dioxide 29 mmol/L (21-32); Chloride 107 mmol/L (98-107); Creatinine Clr Calc Pharmacy 50.6 ml/min; Est GFR (African American) 71.1; Est GFR (Non-African American) 61.3; Glucose 78 mg/dl (70-99); Potassium 3.8 mmol/L (3.5-5.1); Sodium 141 mmol/L (136-145)
--- NOTE | 2019-11-06 12:00 | Electrocardiogram Report ---
Test Reason : Blood Pressure : / mmHG Vent. Rate : 067 BPM Atrial Rate : 067 BPM P-R Int : 152 ms QRS Dur : 070 ms QT Int : 396 ms P-R-T Axes : 066 054 072 degrees QTc Int : 418 ms Normal sinus rhythm Nonspecific T wave abnormality Anteroseptal leads Abnormal ECG When compared with ECG of 18-APR-2016 09:36, Nonspecific T wave abnormality Anteroseptal leads now present Otherwise no significant change Confirmed by Jose Goff ([id number]) on 11/06/2019 11:59:51 AM Referred By: Steve Jaime Confirmed By:Jose Goff
--- NOTE | 2019-11-27 13:43 | History and Physical Report ---
DATE OF ADMISSION: 12/05/2019 CHIEF COMPLAINT: Persistent progressive right knee pain and discomfort. HISTORY OF PRESENT ILLNESS: A 74-year-old female who presents primarily for treatment of her right knee at this point. She has a long history of knee problems and had her left knee replaced about 3-1/2 years ago. She has done pretty well from this. She has continued to develop progressive and increasing pain in her right knee. She has been through extensive conservative treatment including shots, which provided very temporary relief only. They helped her for a couple weeks. Her pain is global. The more she is up on it, the more it hurts and the more she limps. She has nighttime discomfort. She would like to have her knee fixed. PAST MEDICAL HISTORY: 1. Hypertension. 2. Elevated cholesterol. 3. History of Pelletier's palsy. 4. Low back pain/sciatica. 5. Gastroesophageal reflux disease. 6. Mild obesity. 7. Skin cancer. PAST SURGICAL HISTORY: Includes: 1. Mole removal. 2. Left knee replacement done on 05/06/2016. 3. Breast lump excision. ALLERGIES: BEE STINGS. CURRENT MEDICINES: Include: 1. hydrochlorothiazide/lisinopril 10.5/12.5 once a day. 2. Simvastatin 20 mg daily. 3. Multivitamin. 4. Calcium. 5. Aspirin. 6. Diclofenac. SOCIAL HISTORY: A 74-year-old female. She lives in [place]. She is . Does not smoke. One drink per week. FAMILY HISTORY: Noncontributory. REVIEW OF SYMPTOMS: Negative for diabetes, neurologic problem, vascular problems or bleeding disorders. No chest pain or shortness of breath. No history of DVT or PE. PHYSICAL EXAMINATION: GENERAL: Shows a pleasant, middle-aged female who looks to be in pretty good health. HEENT: Benign. NECK: Supple, no lymphadenopathy. LUNGS: Clear to auscultation. HEART: Has a regular rate and rhythm. ABDOMEN: Soft, nontender, nondistended. EXTREMITIES: Grossly neurovascularly intact except as follows: Examination of the right knee reveals the patient walks with slight bit of a limp on the right side. She got varus alignment to her knee. Flexion contracture of about 5-10 degrees, can flex to 110. No instability. No pain with hip motion. Examination of the left knee reveals a well-healed incision. Range of motion 0-120. Good straight leg raise. X-RAYS: X-rays of the right knee are reviewed. It shows advanced right knee DJD. She has got extensive grade 4 [id number] disease in the medial compartment with osteophytes primarily in the medial compartment. She does have significant patellofemoral disease as well. The left knee replacement looks to be in good position. ASSESSMENT: A 74-year-old female 3-1/2 years out from a left knee replacement with advanced right knee degenerative joint disease. She has failed conservative treatment and would like to have her right knee replaced. PLAN: We will take her to the operating room and do right total knee replacement. The risks and benefits of this procedure were explained to the patient including but not limited to DVT, PE, , infection, neurological injury, vascular injury, bleeding problem, pain, limited range of motion, stiffness, failure to relieve her symptoms, incomplete relief of symptoms, need for further surgery in the future, fracture, leg length inequality, nerve palsy, etc. The patient understands and desires to proceed. Informed consent was obtained. We did talk about holding her diclofenac 10 days preop. She is planning to be discharged home using the [facility] home health program. We will see her back in 2 weeks from surgery. We did talk about holding her lisinopril on the morning of surgery as well.
[~2019-12-05 10:36] MED LIST changes: -ACET-1138 PO; +ACETAMINOPHEN 500 MG TAB PO SCH; -AREDS PO; -ASPEC325 PO; +BUPIVACAINE 0.5 % 5 MG/1 ML PF 10ML VIAL ONE; +BUPIVACAINE LIPOSOME/PF 266 MG, BUPIVACAINE/EPINEPHRINE 50 ML, SODIUM CHLORIDE 0.9% 30 ... INFIL SCH; -CALCTAB5 PO; +CEFAZOLIN 2000MG 2,000 MG/15 ML SYR IV SCH; +FAMOTIDINE 20 MG TAB PO SCH; -FRRG PO; +GABAPENTIN 300 MG CAP PO SCH; -IBUP-103 PO; +LIDOCAINE HCL 2% 2 ML VIAL/AMP(20MG/ML) INFIL ONE; +LR 500ML BOLUS, THEN 15ML/HR IV SCH; +LR 60ML/HR IV SCH; +METOCLOPRAMIDE HCL 10 MG TABLET PO SCH; +MIDAZOLAM HCL 1 MG/ML 2ML VIAL ONE; -MULT-506 PO; -OMEG10007 PO; +PROPOFOL IV EMULSION 10 MG/ML 20 ML VIAL IV ONE; +ROPIVACAINE 0.5% 5 MG/ML 30 ML VIAL ONE; -RXC5 PO; -SENNTAB23 PO; -SIMV20TA2 PO; +TRANEXAMIC ACID 1,000 MG **IV Intra-op IV SCH; -[UNRECOGNIZED DRUG - CODE] PO
--- NOTE | 2019-12-05 11:01 | History & Physical Bridge Note ---
Date of Service December 05, 2019 History & Physical Bridge Note I have examined the patient, reviewed the History & Physical and in the interval since the performance of the History & Physical I have noted the following changes of clinical significance: no changes noted
[2019-12-05] MEDS ORDERED: SODIUM CHLORIDE 0.9% PF 50 ML VIAL ONE (11:24)
[2019-12-05] MEDS ORDERED: BUPIVACAINE LIPOSOME 1.3% 266 MG/20 ML VIAL ONE (11:24)
[2019-12-05] MEDS ORDERED: BACITRACIN INJ 50,000 UNIT VIAL ONE (11:24)
[2019-12-05] MEDS ORDERED: EPINEPHrine INJ 1 MG/ML AMP ONE (11:25)
[2019-12-05] MEDS ORDERED: BUPIVACAINE 0.25% 30 ML VIAL ONE (11:25)
[2019-12-05] MEDS ORDERED: MIDAZOLAM HCL 1 MG/ML 2ML VIAL ONE (11:40)
[2019-12-05] MEDS ORDERED: HYDROmorphone INJ 2 MG/ML SYR/VIAL IV PRN (12:58)
[2019-12-05] MEDS ORDERED: ONDANSETRON INJ 2 MG/ML 2 ML VIAL IV PRN ×2 (12:58→16:26)
[2019-12-05] MEDS ORDERED: ePHEDrine sulfate 50 MG/ML AMP IV PRN (12:58)
[2019-12-05] MEDS ORDERED: fentaNYL citrate 100 MCG/2 ML VIAL IV PRN (12:58)
[2019-12-05] MEDS ORDERED: ATROPINE SULFATE 0.1 MG/ML 10ML SYR IV PRN (12:58)
[2019-12-05] MEDS ORDERED: ePHEDrine sulfate 50 MG/ML AMP ONE (13:39)
[2019-12-05] MEDS ORDERED: PHENYLEPHRINE 100MCG/ML 5ML SYR ONE (13:39)
--- NOTE | 2019-12-05 14:36 | Post Operative Brief Note ---
PG Immediate Post Op with CF Date of Surgery December 05, 2019 Pre & Post Diagnosis Operation Date: 12/05/19 12:45 Pre-Op Diagnosis: Right Knee Degeneartive Joint Disease; Knee Pain Post-Op Diagnosis: Right Knee Degeneartive Joint Disease; Knee Pain I identified the patient and participated in the time-out.: Yes Procedure Operation Date: 12/05/19 12:45 Actual Procedures p Right Total Knee Arthroplasty(Right) - Steve Jaime MD Surgeon Steve Jaime MD [facility] [place], [facility] Estimated Blood Loss 50 Findings Consistent with Post-Op Diagnosis Fluids 800 cc Specimens Specimen Description: A: Right knee bone and tissue Anesthesia Type Spinal MAC Complications none Disposition Accompanied Patient To Recovery: No Disposition: Recovery Room
--- NOTE | 2019-12-05 14:57 | Operative Report ---
Post Operative Report Pre & Post Diagnosis Operation Date: 12/05/19 12:45 Pre-Op Diagnosis: Right Knee Degeneartive Joint Disease; Knee Pain Post-Op Diagnosis: Right Knee Degeneartive Joint Disease; Knee Pain I identified the patient and participated in the time-out.: Yes Procedure Operation Date: 12/05/19 12:45 Actual Procedures p Right Total Knee Arthroplasty(Right) - Steve Jaime MD Surgeon Steve Jaime MD Director Of [employer] [place], PAC Estimated Blood Loss 50 Findings Consistent with Post-Op Diagnosis Operative findings revealed extensive grade 4 [id number] disease the medial and patellofemoral compartments. She had osteophytes in both compartments with the eburnation and sclerosis of the bone. Moderate to large knee joint effusion. Moderate synovitis. Fluids 800 cc. Specimens Right knee sent for pathology. Drains None. Anesthesia Type Spinal MAC Complications none Disposition Accompanied Patient To Recovery: No Disposition: Recovery Room Indications Patient is a 74-year-old fairly active female whose had a long history of bilateral knee pain DJD and discomfort. She underwent a left knee replacement about 4 and half years ago and is done well from this. She continued be bothered by right knee pain. She is exhausted all conservative care. She elected proceed with total knee arthroplasty. Description of Procedure Operative implants consist of: 1. Biomet Vanguard size 65 right posterior stabilized femoral component. 2. Biomet size 63 tibial tray. 3. 10 mm posterior stabilized polyethylene insert. 4. 28 x 8 all poly-patella. The patient was taken to the operating room identified and placed on the operating table supine position protectors were properly padded. IV antibiotics arrived by anesthesia team. A spinal anesthetic and abductor canal block had been provided in the holding area. Yip catheter was placed in sterile fashion. Right thigh turn was then placed in the right lower extremities and prepped and draped in usual sterile fashion. The right leg was elevated exsanguinated with use of an Esmarch and turns placed at 3 mmHg. An anterior approach to the right knee was then performed to longitudinal incision centered over the patella. Sharp dissection was got through subcutaneous tissue down to the extensor mechanism. A medial parapatellar throbbing incision was made. Some subperiosteal dissection was carried out medially. The fat pad was resected from each patella tendon. Lateral patellofemoral ligament was released. Patella was subluxated laterally and the knee was flexed. The osteophytes were taken off the distal femur. The ACL PCL were then released from distal femur and the tibia subluxate anteriorly. The external tibial alignment jig was then placed in the interface the tibia and adjusted 14 mm medially. Proximal tibial cut was made to move out 2 mm of bone from most efficient aspect the medial tibial plateau. The tibia was then sized to a size 63. We try to maximize coverage. Attention drawn the femur. The distal femur there was a sharp drill. The intramedullary canal was suction. A right 5 degree valgus cutting guide was placed for the distal femoral cutting block was pinned in place. Distal femoral cut was made to take an additional 3 mm bone off distal femur. The femur was then sized to a size 65. We did downsize this almost an entire size due to the very narrow medial lateral dimensions of her femur. The AP cutting block was pinned parallel to the epicondylar axis which was 5 degrees of external rotation. The anterior cut, anterior chamfer, posterior cut, posterior chamfer cuts were made. Box cutting guide was placed in a just slight lateral and the box cut was made. The knee was flexed. The remnants of the medial and lateral menisci were excised. The osteophytes were taken off the posterior aspect of the femur. A trial femoral component was placed. The tibial tray was pinned in maximum external rotation and the drill and stem punch were used to create defect in proximal to for the tibial tray. The knee was then trialed and the 10 mm insert fit most appropriately. Attention drawn to the patella. The patella was cleaned of all soft tissues. Patella was quite worn and eburnated. It measured 18 mm in thickness and was cut down to 12. Was sized to a size 28 patella. The lug holes were drilled for the 28 patella. The lateral osteophyte was removed. Patella button was placed. Knee was taken through range of motion patella tracked nicely with no thumbs test. Attention drawn to placing permanent components. All trial components were removed. A bone plug was placed in the distal femur limit blood loss. A double batch Palacos G cement was mixed. A Biomet Vanguard size 65 right posterior stabilized femoral component, size 63 tibial tray, a 10 mm posterior box polyethylene insert, and a 28 x 8 all poly-patella were then cemented in place. The knee was brought out into full extension until cement hardened. Final cement check was then performed. The pericapsular tissues were injected with total 100 cc of combination of 20 cc of Exparel, 30 cc of normal saline, 50 cc of quarter percent Marcaine with epinephrine. Patient did receive 1 g tranexamic acid. The tourniquet was then let down for turn time 53 minutes. Hemostasis assured use electrocautery. Extensor mechanism then closed with combination 1 PDS suture #1 Vicryl suture in [id number] fashion. Extensor mechanism checked found to be intact the subcutaneous tissue then closed with 2 Dexon suture in a buried interrupted fashion skin was closed skin jessika. Leg was then cleaned dried a sterile dressing composed Xeroform, 4 x 4's, sterile cast padding, Rico bandage were applied. Patient then transferred to the recovery room in stable condition. Patient tolerated the procedure well and there were no complications. Jonathan Hightower, my physician emergency veterinary assistant, was present for the entire procedure. His assistance was essential to a proper patient positioning, prepping and draping, surgical exposure, performing the technical details the operation, placement of the implants, closure of the wound, and placement of the sterile bandage. I attest to the content of the Intraoperative Record and any orders documented therein. Any exceptions are noted below.
--- NOTE | 2019-12-05 14:59 | XRay Report ---
XR knee RT 1 or 2V routine CLINICAL HISTORY: Postoperative evaluation. COMPARISON: Knee radiographs September 26, 2019. FINDINGS: Alignment of the total right knee arthroplasty is anatomic. There is no periprosthetic fra cture or unexpected radiopaque foreign body. There are skin jessika. IMPRESSION: Expected findings following total right knee arthroplasty. ACT 112: Negative or not required by law. Electronically signed by: Enmanuel Vargas M.D. 12/05/2019 2:58 PM
--- NOTE | 2019-12-05 16:05 | Anesthesiology Progress Note ---
Date of Service December 05, 2019 Anesthesia Post Procedure Vital Signs Vital Signs: Temp Pulse Pulse Resp BP BP Pulse Ox 12/05/19 16:00 36.3 C L 86 12 123/73 95 12/05/19 15:50 36.3 C L 88 12 124/71 98 12/05/19 15:40 86 14 121/68 98 12/05/19 15:30 90 17 132/70 95 12/05/19 15:20 94 H 16 127/67 96 12/05/19 15:10 89 16 123/66 95 12/05/19 15:00 92 H 14 115/69 97 12/05/19 14:50 93 H 14 107/57 L 98 12/05/19 14:41 36.1 C L 95 H 16 101/51 L 98 12/05/19 12:02 75 20 155/67 H 96 12/05/19 11:12 36.8 C 81 18 155/91 H 97 Transfer of Care Handoff Completed per policy Notes Mental Status: alert / awake / arousable Patient Amnestic to Procedure: Yes Nausea / Vomiting: adequately controlled Pain: adequately controlled Airway Patency, RR, SpO2: stable & adequate BP & HR: stable & adequate Hydration State: stable & adequate Anesthetic Complications: no major complications apparent
[2019-12-05] MEDS ORDERED: INFLUENZA ADMINISTRATION CHARGE ONE (16:25)
[2019-12-05] MEDS ORDERED: INFLUENZA VACCINE HIGH DOSE 65+ 0.5 ML SYR IM ONE (16:25)
[2019-12-05] MEDS ORDERED: ALUMINUM/MAGNESIUM SUSP 30 ML UDC PO PRN (16:26)
[2019-12-05] MEDS ORDERED: METOCLOPRAMIDE HCL INJ 5 MG/ML 2 ML VIAL IV PRN (16:26)
[2019-12-05] MEDS ORDERED: MAGNESIUM HYDROXIDE SUSP 30 ML UDC PO PRN (16:26)
[2019-12-05] MEDS ORDERED: bisacodyL 10 MG SUPP PR PRN (16:26)
[2019-12-05] MEDS ORDERED: NALOXONE HCL 0.4 MG/1 ML VIAL/CARP IV PRN (16:26)
[2019-12-05] MEDS ORDERED: HYDROmorphone INJ 0.5 MG/0.5 ML SYR IV PRN (16:26)
[2019-12-05] MEDS: ASCORBIC ACID 500 MG TAB PO SCH (17:39)
[2019-12-05] MEDS: FERROUS GLUCONATE 324 MG TAB PO SCH (17:39)
[2019-12-05] MEDS: KETOROLAC TROMETHAMINE 15 MG/ML VIAL IV SCH ×2 (17:40→22:09)
[2019-12-05] MEDS: SODIUM CHLORIDE 0.9% 1000ML 1,000 ML IV SCH (17:54)
[2019-12-05] MEDS: TRAMADOL HCL 50 MG TABLET PO PRN (20:30)
[2019-12-05] MEDS ORDERED: TRANEXAMIC ACID / 0.7% NACL 1,000 MG/100 ML BAG IV SCH (20:39)
[2019-12-05] MEDS: DOCUSATE SODIUM 100 MG CAP PO SCH (20:48)
[2019-12-05] MEDS: ASPIRIN 81 MG ECTAB PO SCH (20:49)
[2019-12-05] MEDS: CALCIUM 600MG + VIT D 400 IU TAB PO SCH ×2 (20:49→20:53)
[2019-12-05] MEDS: SIMVASTATIN 20 MG TAB PO SCH (20:49)
[2019-12-05] MEDS: SENNA 8.6 MG TAB PO SCH (20:49)
[2019-12-05] MEDS: CEFAZOLIN 1000MG 1,000 MG/7.5 ML SYR IV SCH (20:49)
[2019-12-05] MEDS: ACETAMINOPHEN 500 MG TAB PO SCH (20:50)
[2019-12-05] MEDS ORDERED: DOCUSATE SODIUM 100 MG CAP PO SCH (21:00)
[2019-12-06] MEDS: ACETAMINOPHEN 500 MG TAB PO SCH ×3 (05:48→21:00)
[2019-12-06] MEDS: CEFAZOLIN 1000MG 1,000 MG/7.5 ML SYR IV SCH (05:48)
[2019-12-06] MEDS: KETOROLAC TROMETHAMINE 15 MG/ML VIAL IV SCH ×4 (05:48→22:37)
[2019-12-06] MEDS: TRAMADOL HCL 50 MG TABLET PO PRN ×3 (05:58→20:59)
[2019-12-06] MEDS: SODIUM CHLORIDE 0.9% 1000ML 1,000 ML IV SCH (06:08)
[2019-12-06 06:09] LABS: Hematocrit (blood only) 29.9 % (37-47); Hemoglobin 10.1 g/dL (12.0-16.0); Mean Corpuscular Hemoglobin 30.9 pg (25-34); Mean Corpuscular Hgb Conc 33.8 g/dL (32-36); Mean Corpuscular Volume 91.4 fL (80-100); Mean Platelet Volume 8.7 fL (7.4-10.4); Platelet Count 235 K/uL (130-400); RDW Coefficient of Variation 13.2 % (11.5-14.5); RDW Standard Deviation 44.1 fL (36.4-46.3); Red Blood Count 3.27 M/uL (4.2-5.4); White Blood Count 7.03 K/uL (4.8-10.8)
[2019-12-06 06:37] LABS: BUN Creatinine Ratio 24.1 (10-20); Calcium 8.1 mg/dl (8.5-10.1); Creatinine Clr Calc Pharmacy 58.3 ml/min; Est GFR (African American) 85.5; Est GFR (Non-African American) 73.7; Potassium 4.2 mmol/L (3.5-5.1)
--- NOTE | 2019-12-06 08:56 | Progress Notes ---
DATE: 12/06/2019 SUBJECTIVE: A 74-year-old white female postop day 1 from right knee replacement. She is doing quite well. Pain has been controlled overnight. No chest pain or shortness of breath. Not feeling dizzy or lightheaded. OBJECTIVE: VITAL SIGNS: Temperature 36.5. Vital signs stable. GENERAL: Shows a pleasant, middle-aged female. She is sitting up in bed, looks comfortable this morning. LUNGS: Clear to auscultation. HEART: Regular rate and rhythm. ABDOMEN: Soft, nontender, nondistended. EXTREMITIES: Grossly neurovascularly intact except as follows: Examination of the right leg reveals the leg to be well aligned. Dressing is clean, dry and intact. She can dorsiflex and plantarflex her foot appropriately. She is neurologically intact. LABORATORY DATA: Hemoglobin 10.1. Hematocrit 29.9. Electrolytes are stable. ASSESSMENT: A 74-year-old female postop day 1 from right knee replacement, doing pretty well. Pain has been controlled. She is neurologically intact. PLAN: 1. DVT prophylaxis including thigh-high TEDs, SCDs, and aspirin twice a day. 2. PT/OT. Weight bear as tolerated. Right total knee protocol. 3. Pain control, doing well with current pain regimen. 4. Disposition: She is planning to be discharged home with some home health once adequately recovered and medically stable.
[2019-12-06] MEDS ORDERED: MULTIVITAMIN TAB PO SCH (09:00)
[2019-12-06] MEDS: LISINOPRIL/HCTZ 10/12.5MG TAB PO SCH (09:08)
[2019-12-06] MEDS: DOCUSATE SODIUM 100 MG CAP PO SCH ×2 (09:09→21:00)
[2019-12-06] MEDS: CALCIUM 600MG + VIT D 400 IU TAB PO SCH ×2 (09:09→20:59)
[2019-12-06] MEDS: ASCORBIC ACID 500 MG TAB PO SCH ×2 (09:09→17:37)
[2019-12-06] MEDS: ASPIRIN 81 MG ECTAB PO SCH ×2 (09:09→21:00)
[2019-12-06] MEDS: FERROUS GLUCONATE 324 MG TAB PO SCH ×2 (09:09→17:29)
[2019-12-06] MEDS: MULTIVITAMIN TAB PO SCH (09:09)
[2019-12-06] MEDS: SIMVASTATIN 20 MG TAB PO SCH (21:00)
[2019-12-06] MEDS: SENNA 8.6 MG TAB PO SCH (21:00)
[2019-12-07] MEDS: ACETAMINOPHEN 500 MG TAB PO SCH (06:13)
[2019-12-07] MEDS: KETOROLAC TROMETHAMINE 15 MG/ML VIAL IV SCH (06:13)
[2019-12-07] MEDS: ASCORBIC ACID 500 MG TAB PO SCH (08:33)
[2019-12-07] MEDS: DOCUSATE SODIUM 100 MG CAP PO SCH (08:33)
[2019-12-07] MEDS: CALCIUM 600MG + VIT D 400 IU TAB PO SCH (08:33)
[2019-12-07] MEDS: FERROUS GLUCONATE 324 MG TAB PO SCH (08:33)
[2019-12-07] MEDS: ASPIRIN 81 MG ECTAB PO SCH (08:34)
[2019-12-07] MEDS: MULTIVITAMIN TAB PO SCH (08:34)
[2019-12-07] MEDS: LISINOPRIL/HCTZ 10/12.5MG TAB PO SCH (08:35)
[2019-12-07] MEDS: TRAMADOL HCL 50 MG TABLET PO PRN (08:41)
--- NOTE | 2019-12-07 08:48 | Progress Notes ---
DATE: 12/07/2019 SUBJECTIVE: A 74-year-old white female postop day 2 from a right knee replacement. She is doing well. Had a better night last night. No chest pain or shortness of breath. Not feeling dizzy or lightheaded. OBJECTIVE: VITAL SIGNS: Temperature 36.7. Vital signs stable. GENERAL: Physical examination shows a pleasant elderly female. She is sitting in her bedside chair, eating breakfast, looks pretty comfortable this morning. EXTREMITIES: Examination of the right leg reveals the dressing is clean, dry and intact. Fairly mild swelling. She can dorsiflex and plantarflex her foot appropriately. Calf is soft and supple. She is neurologically intact. ASSESSMENT: A 74-year-old white female postop day 2 from a right knee replacement, doing pretty well. Pain is controlled. PLAN: 1. DVT prophylaxis include thigh-high TEDs, SCDs, and aspirin twice a day. 2. PT/OT, weightbear as tolerated. Right total knee protocol. 3. Pain control, doing well with current pain regimen. 4. Disposition: Plan to discharge to home with some home health later today.
== END 2019-12-07 10:07 | disposition home health service (06) ==
LOC: 3E 10:36 → ASU 10:36
DX: Z85.828 Personal history of other malignant neoplasm of skin; I10 Essential (primary) hypertension; Z96.652 Presence of left artificial knee joint; Z68.29 Body mass index [BMI] 29.0-29.9, adult; Z79.82 Long term (current) use of aspirin; E66.9 Obesity, unspecified; Z79.899 Other long term (current) drug therapy; K21.9 Gastro-esophageal reflux disease without esophagitis; M17.11 Unilateral primary osteoarthritis, right knee